=== PATIENT | male | born 1955 | race Caucasian/White ===

== ENCOUNTER 2016-12-06 18:47 | Inpatient (IN) | payer BC ==
--- NOTE | ~2016-12-06 | HP ---
History And Physical [id number] [place]. [address] NAME: SANDY LEARY : 53 STATUS : ADM IN PAT#: [id number] AGE: 61 ADM/REG DATE : 12/06/16 MR#: [id number] REPORT SERV DATE: 12/07/16 DICTATED BY: SONA PRESTON DATE: 12/06/16 REPORT STATUS : Draft TRANSCRIBED BY: MODNorbert DATE: 12/06/16 DATE OF ADMISSION: 12/06/2016 POINT OF ENTRY: [facility] Emergency Department. CHIEF COMPLAINT: Severe headache with vision loss. HISTORY OF PRESENT ILLNESS: Mr. Leary is a 61-year-old gentleman with history of active tobacco abuse, COPD, depression, and gastroesophageal reflux disease, who presents to the emergency department today with an episode of severe headache with associated vision loss. The patient states that he first started to develop very severe focal headaches located in the right temporal region back in June. These are intermittent in nature and usually resolve with ibkr-hth-yhpojgt pain medications. While working out of town about 10 days ago, he developed the acute onset of severe right temporal headache described as pressure sensation with associated complete vision loss of the right eye. His headache and vision loss lasted for approximately two days. The patient stated his headache started to resolve before his vision returned. Since then, he describes a fuzziness to his right monocular vision as well as some residual very mild and faint pressure on the right side of his head. During this headache and vision loss, the patient also describes a sensation of some jaw claudication as well as subjective fevers as well as chills. He denies any recent vision changes, chest pain, shortness of breath, weakness, numbness, or tingling. Initial evaluation in the emergency department is notable for CT scan of the brain was unremarkable. ESR was markedly elevated at 119. Remainder of his labs are otherwise unremarkable. The ER staff here contacted Ophthalmology contact lens blocker through [facility], who recommend initiation of high-dose steroids as well as a temporal artery biopsy, but did not see indication for transfer to [facility] at this time. COMPREHENSIVE REVIEW OF SYSTEMS: Otherwise negative unless listed in history of present illness. PREVIOIUS MEDICAL HISTORY: 1. Depression. 2. Gastroesophageal reflux disease. 3. COPD. 4. Active tobacco abuse. SURGICAL HISTORY: 1. Tonsillectomy. 2. Appendectomy. ALLERGIES: NO KNOWN DRUG ALLERGIES. History And Physical [address] [address] NAME: SANDY LEARY : 53 STATUS : ADM IN PAT#: [id number] AGE: 61 ADM/REG DATE : 12/06/16 MR#: [id number] REPORT SERV DATE: 12/07/16 DICTATED BY: SONA PRESTON DATE: 12/06/16 REPORT STATUS : Draft TRANSCRIBED BY: KOFI DATE: 12/06/16 HOME MEDICATIONS: 1. Albuterol two puff inhalation b.i.d. 2. Aspirin 650 mg b.i.d. p.r.n. 3. Cetirizine 10 mg daily p.r.n. 4. Celexa 20 mg daily. 5. Ranitidine 150 mg daily. 6. Multivitamin one tab daily. SOCIAL HISTORY: Denies any alcohol or illicits. Does smoke a few cigarettes a day, trying to actively quit. 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 Extensive out of town travel. FAMILY MEDICAL HISTORY: Mother with breast cancer. Father with coronary artery disease in his early age of 40s, sister with diabetes and coronary artery disease. LABS AND IMAGIN. White count is 3.4, hemoglobin is 9.5, hematocrit is 29.7, platelet count is 79, INR 1.0. 2. Sodium is 139, potassium 3.7, chloride 105, carbon dioxide 30, BUN 14, creatinine 1.02, glucose is 78, calcium is 8.2, protein is 8.7, albumin is 3.3, bilirubin is 0.4, ALT is 37, AST is 17, alkaline phosphatase is 89. 3. Troponin less than 0.02. 4. ESR is 119. CRP is pending. 5. Chest x-ray per my review shows no acute cardiopulmonary abnormality. 6. CT scan of the brain shows no acute intracranial abnormality. PHYSICAL EXAMINATION: VITAL SIGNS: Temperature is 97.4 degrees Fahrenheit, pulse is 93, respirations 16, saturating 97% on room air, blood pressure is 126/82. GENERAL: The patient is awake, alert, in no acute distress, resting comfortably. He is a well-developed, well-nourished elderly male. HEENT: Atraumatic and normocephalic. Moist mucous membranes. Pupils are equal, round, reactive to light and accommodation. Extraocular eye movements are intact. No scleral icterus. There is no right temporal tenderness on palpation at this time. NECK: No carotid bruits. No jugular venous distention. CARDIAC: Regular rate and rhythm. No murmurs, rubs, or gallops. Normal S1, S2. LUNGS: Clear to auscultation bilaterally. No wheezes, rhonchi, or crackles. ABDOMEN: Soft, nontender, nondistended. Good bowel sounds. No rebound, guarding, or rigidity. EXTREMITIES: Warm and well perfused. No cyanosis, clubbing, or edema. SKIN: Warm and dry. PSYCH: Affect appropriate. NEURO: Alert and oriented x3. Cranial nerves 2 through 12 grossly intact. Speech is normal. Gait not assessed. ASSESSMENT: Mr. Leary is a 61-year-old gentleman, who presented with an isolated episode of a severe right temporal headache with associated vision loss concerning for possible History And Physical [address] [address] NAME: SANDY LEARY : 53 STATUS : ADM IN [facility]#: [id number] AGE: 61 ADM/REG DATE : 12/06/16 MR#: [id number] REPORT SERV DATE: 12/07/16 DICTATED BY: SONA PRESTON DATE: 12/06/16 REPORT STATUS : Draft TRANSCRIBED BY: KOFI DATE: 12/06/16 temporal arteritis. PROBLEM LIST: 1. Possible temporal arteritis. 2. Severe headache. 3. Transient vision loss. 4. Pancytopenia. 5. Active tobacco abuse. PLAN: 1. Possible temporal arteritis. Given the patient's constellation of symptoms as well as elevated ESR level, concern most for temporal arteritis. We will empirically place the patient on high-dose Solu-Medrol, schedule the patient for a temporal artery biopsy. We will also consult Neurology as well as schedule him for an MRI/MRA to rule out any other etiology of the patient's symptoms. 2. Pancytopenia, unclear etiology at this time. The patient denies any active alcohol use. We only have one other lab for comparison from 2014, which at that time, CBC was unremarkable. We will check HIV, hepatitis viral panel, iron studies, folate, B12, and follow up these results. 3. Headache and vision loss. Again, suspect this is all due to temporal arteritis. Followup MRI/MRA as well as Neurology consultation. 4. DVT prophylaxis. Lovenox subcu. CODE STATUS: The patient wished to be full code. SYDNI/KOFI Sona Preston MD / [id number] CC: DO SANDY Shah
--- NOTE | ~2016-12-06 | CN ---
Consultation Report [id number] [place]. [address] NAME: SANDY LEARY : 53 STATUS : ADM IN PAT#: [id number] AGE: 61 ADM/REG DATE : 12/06/16 MR#: [id number] REPORT SERV DATE: 12/07/16 DICTATED BY: KLAUDIA HERRERA DATE: 12/07/16 REPORT STATUS : Draft TRANSCRIBED BY: MODL DATE: 12/07/16 DATE OF CONSULTATION: 12/07/2016 CHIEF COMPLAINT: Headache and visual problems. SUMMARY: A 61-year-old gentleman with history of COPD, depression, reflux, also started to have some headaches primarily on the right. He has also had some visual loss intermittently. He states this is mostly on the right. He was admitted here for further evaluation. Sedimentation rate was noted to be 119. PAST HISTORY: COPD. REVIEW OF SYSTEMS: Essentially unremarkable. PHYSICAL EXAMINATION: GENERAL: Reveals him to be alert, in no acute distress. HEART: Had a regular rhythm. LUNGS: Clear. ABDOMEN: Soft. EXTREMITIES: Grossly within normal limits. IMPRESSION: Possible temporal arteritis. PLAN: Right temporal artery biopsy. This was discussed with him. Risks and complications including bleeding, infection, and nerve injury, and he desires to proceed and this will be scheduled. MALINDA/KOFI Klaudia Herrera M.D. / [id number] CC: DO ALLISON Shah PAUL E
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
--- NOTE | ~2016-12-06 | DS ---
Discharge Summary [facility] [address] [place]. [address] NAME: NEO LEARY : 53 STATUS : DIS IN PAT#: [id number] AGE: 61 ADM/REG DATE : 12/06/16 MR#: [id number] REPORT SERV DATE: 12/13/16 DICTATED BY: ARMANDO TURCIOS DATE: 12/12/16 REPORT STATUS : Draft TRANSCRIBED BY: MODNorbert DATE: 12/12/16 ADMISSION DATE: 12/06/2016 DISCHARGE DATE: 12/11/2016 REASON FOR ADMISSION: This is a 61-year-old male who came in with severe headaches and right visual disturbance. He developed severe focal headaches located in the right temporal region back in June which were intermittent in nature and then while on a work assignment out of town 10 days prior to admission, he developed acute onset of right severe temporal headache associated with complete vision loss of the right eye. Since then he described fuzziness to the right eye to his vision and residual headaches on the right side of his head. DISCHARGE DIAGNOSES: Probable giant cell arteritis. HOSPITAL COURSE: The patient was admitted and Neurology was consulted. They placed him on IV corticosteroids initially on admission and temporal artery biopsy was performed by Dr. David Mosqueda. They would also place him on Topamax and p.r.n. Percocet. The patient's headaches would improve. He still was experiencing some mild blurriness of vision but overall his headache symptoms are much more manageable. The temporal artery biopsy would come back negative for active arthritis. Patient's ESR was found to be 115. The patient had CT of the brain initially done on admission which showed unremarkable noncontrast head CT. MRI of the brain will be performed on which would show no evidence of any intrinsic defect of the ophthalmic system. No extrinsic compression. Ventricles are midline and normal. Hemisphere symmetric. Diffusion images negative for any acute injury or vascular injury. No evidence of chronic vascular injury either. MRA of the head which showed mild atherosclerotic changes of the basilar artery identified. The remainder of the intracranial exam was normal. MRA of neck would show no significant stenosis of the brachiocephalic portions of the carotid, vertebral or subclavian arteries identified. Due to patient's improvement in symptoms, he is stable for discharge, be discharged home on prednisone and Topamax with followup with Neurology in two weeks. DISCHARGE CONDITION: Stable. DISCHARGE MEDICATIONS: 1. Aspirin 81 mg p.o. daily. 2. Celexa 20 mg p.o. daily. 3. Zantac 150 mg p.o. p.r.n. 4. Albuterol p.r.n. 5. Multivitamin one tablet p.o. daily. 6. Zyrtec 10 mg p.r.n. daily. 7. Hydrocodone 7.5/325 one tab p.o. q.4 hours p.r.n. 8. Topamax 25 mg p.o. b.i.d. 9. Prednisone 80 mg p.o. daily. DISCHARGE PLAN: The patient is discharged home. Follow up with Neurology in two weeks and primary care who is Neo Bradley in one to two weeks. Discharge Summary [address] [address] NAME: NEO LEARY : 53 STATUS : DIS IN PAT#: [id number] AGE: 61 ADM/REG DATE : 12/06/16 MR#: [id number] REPORT SERV DATE: 12/13/16 DICTATED BY: ARMANDO TURCIOS DATE: 12/12/16 REPORT STATUS : Draft TRANSCRIBED BY: KOFI DATE: 12/12/16 TDR/KOFI Armando Turcios APN / [id number] CC: Srinivas Montano, [facility] David Mosqueda M.D.
--- NOTE | ~2016-12-06 | OP ---
Record Of Operation [facility] [address] [place]. [address] NAME: NEO LEARY : 53 STATUS : ADM IN [facility]#: [id number] AGE: 61 ADM/REG DATE : 12/06/16 MR#: [id number] REPORT SERV DATE: 12/07/16 DICTATED BY: KLAUDIA HERRERA DATE: 12/07/16 REPORT STATUS : Draft TRANSCRIBED BY: KOFI DATE: 12/07/16 DATE OF PROCEDURE: 12/07/2016 PREOPERATIVE DIAGNOSIS: Headache and right eye vision problems. POSTOPERATIVE DIAGNOSIS: Headache and right eye vision problems, possible temporal arteritis. PROCEDURES: Right temporal artery biopsy. ANESTHESIA: General endotracheal anesthesia with local anesthetic administered by the surgeon. IV FLUIDS: 800 mL. ESTIMATED BLOOD LOSS: 20 mL. SPECIMEN: Right temporal artery biopsy. DRAINS: None. COMPLICATIONS: None. CULTURES: None. INDICATIONS: Mr. Leayr is a 61-year-old man who presented to the hospital secondary to right-sided headache and visual disturbance. His sedimentation rate is 119 secondary to concern for temporal arteritis. General Surgery was consulted for biopsy, this was offered. Preoperatively, benefits, alternatives, and risks including bleeding, infection, possible nerve damage, and risk of general endotracheal anesthesia including, but not limited to, heart attack, stroke, and were all described in detail to the patient preoperatively. After having all questions answered, the patient voiced understanding of these risks and desired to proceed with surgery. PROCEDURE IN DETAIL: The patient was identified preoperatively as Neo Leary. It was determined that he had appropriately signed documents including history and physical and operative permit were secured on the chart. He was taken to the operating room, placed supine on the operating room table where general anesthesia was induced by the Anesthesia Service, who monitored the patient throughout the procedure. The right side of the head was clipped of excess hair and prepped in the usual sterile fashion and draped. An appropriate time-out procedure was completed wherein the patient, procedure, site, positioning, allergies, equipment, and administration of antibiotics were verified prior to beginning. The temporal artery was palpated just medial to the pinna and a small incision was made with a knife. This carried down through the subcutaneous tissues with electrocautery until the artery was encountered, proximal and distal margins of resection were identified, and the artery was freed of surrounding tissues. These margins were clamped, cut, and tied with Record Of Operation [address] [address] NAME: NEO LEARY : 53 STATUS : ADM IN [facility]#: [id number] AGE: 61 ADM/REG DATE : 12/06/16 MR#: [id number] REPORT SERV DATE: 12/07/16 DICTATED BY: KLAUDIA HERRERA DATE: 12/07/16 REPORT STATUS : Draft TRANSCRIBED BY: KOFI DATE: 12/07/16 marina. The specimen was passed off the table to Pathology for examination. The wound was irrigated and closed in layers and Dermabond was applied. This ended the procedure. Sedation was stopped and the patient was allowed to awaken in the operating room and then taken to the postanesthesia care unit in good condition after having tolerated the procedure well. Counts of needles, sponges, and instruments were correct at the end the case. Dr. Herrera was present and scrubbed for the entirety of the surgical procedure. No intraoperative complications were noted. DICTATED BY: Farida Archer MD [facility]/KOFI Klaudia Herrera M.D. / [id number] CC: DO ALLISON Shah PAUL E
[2016-12-06 18:34] LABS: BASOPHILS 0.3 %; BASOPHILS ABSOLUTE 0.01 10/3/uL (0.0-0.16); EOSINOPHILS 0.3 %; EOSINOPHILS ABSOLUTE 0.01 10/3/uL (0.0-0.53); IMMATURE GRANULOCYTES 0.3 %; IMMATURE GRANULOCYTES ABSOLUTE 0.01 10/3/uL (0.0-0.11); LYMPHOCYTES 47.8 %; LYMPHOCYTES ABSOLUTE 1.64 10/3/uL (0.67-4.30); MEAN CORPUSCULAR HEMOGLOB 29.3 pg (26.0-34.0); MEAN CORPUSCULAR VOLUME 91.7 fL (80-100); MEAN PLATELET VOLUME 8.9 fL (9.2-13.0); MONOCYTES 9.3 %; MONOCYTES ABSOLUTE 0.32 10/3/uL (0.21-1.20); NEUTROPHILS ABSOLUTE 1.44 10/3/uL (2.02-8.40); NUCLEATED RED BLOOD CELLS 0.7 /100WBC (0-0); PLATELET COUNT 79 10/3/uL (150-400); RBC DISTRIBUTION WIDTH 16.5 % (12.0-16.0); WHITE BLOOD CELLS 3.4 10/3/uL (4.5-10.5)
[2016-12-06 18:38] LABS: HEMATOCRIT 29.7 % (40.0-51.0); HEMOGLOBIN 9.5 g/dL (13.6-17.8); MANUAL DIFF NO %; RED CELL COUNT 3.24 10/6/uL (4.7-6.1)
[2016-12-06 18:43] LABS: PARTIAL THROMBO TIME 25.2 SEC (22.5-37.2); PROTIME (NOT ORD) 13.3 SEC (12.0-14.5)
[2016-12-06 18:51] LABS: A/G RATIO 0.6 (0.7-1.9); ALBUMIN 3.3 G/DL (3.5-5.0); ALKALINE PHOSPHATASE 89 U/L (45-117); BUN (BLOOD UREA NITROGEN) 14 MG/DL (6-23); CALCIUM, SERUM 8.2 MG/DL (8.5-10.4); CHLORIDE, SERUM 105 MMOL/L (96-112); CO2 (CARBON DIOXIDE) 30 MMOL/L (24-34); CREATININE 1.02 MG/DL (0.70-1.30); GFR AFRICAN AMERICAN 91 ML/MIN (>=60); GFR NON AFRICAN AMERICAN 78 ML/MIN (>=60); GLOBULIN 5.4 G/DL (2.5-4.1); GLUCOSE, SERUM 78 MG/DL (60-99); POTASSIUM, SERUM 3.7 MMOL/L (3.5-5.3); SGOT(AST) 17 U/L (5-40); SGPT(ALT) 37 U/L (5-65); SODIUM, SERUM 139 MMOL/L (135-148); TOTAL BILIRUBIN 0.4 MG/DL (0-1.2); TOTAL PROTEIN 8.7 G/DL (6.0-8.5); TROPONIN I <0.02 NG/ML (<0.05)
[2016-12-06 18:53] LABS: PLATELET ESTIMATE DEC (ADEQUATE)
[2016-12-06 18:54] LABS: ANISOCYTOSIS 1+ (5-10/OIF) (0-5/OIF); MACROCYTES 1+ (5-10/OIF) (0-5/OIF); MICROCYTES 1+ (5-10/OIF) (0-5/OIF); TEARDROP SHAPED RBCS OCC (0-2/OIF)
[2016-12-06 20:19] LABS: ACETAMINOPHEN LEVEL (TYLENOL) < 2.0 MCG/ML (10.0-20.0); ALCOHOL < 3 MG/DL (0); SALICYLATE 1.8 MG/DL (-)
[2016-12-06 20:45] LABS: SED RATE 119 MM/HR (0-15)
[2016-12-06] MEDS ORDERED: HALF81 PO (21:53)
[2016-12-06] MEDS ORDERED: CELEXA20 PO (21:53)
[2016-12-06] MEDS ORDERED: MULTIVITAMIN GUMMY PO (21:54)
[2016-12-06] MEDS ORDERED: VENTOLIN HFA INH (21:54)
[2016-12-06] MEDS ORDERED: ZANTAC150 MG PO (21:54)
[2016-12-06] MEDS ORDERED: ZYRTEC ALLGY10 MG PO (21:55)
[2016-12-06 22:09] LABS: C-REACTIVE PROTEIN < 2.9 MG/L (<8.0)
[2016-12-07 06:26] LABS: BASOPHILS 0 %; EOSINOPHILS 0 %; HEMATOCRIT 28.6 % (40.0-51.0); HEMOGLOBIN 9.3 g/dL (13.6-17.8); IMMATURE GRANULOCYTES 0.5 %; IMMATURE GRANULOCYTES ABSOLUTE 0.01 10/3/uL (0.0-0.11); LYMPHOCYTES 37.2 %; MEAN CORPUS HGB CONC 32.5 g/dL (32.0-36.0); MEAN CORPUSCULAR HEMOGLOB 29.6 pg (26.0-34.0); MEAN CORPUSCULAR VOLUME 91.1 fL (80-100); MEAN PLATELET VOLUME 9.4 fL (9.2-13.0); MONOCYTES 1.9 %; MONOCYTES ABSOLUTE 0.04 10/3/uL (0.21-1.20); NEUTROPHILS 60.4 %; PLATELET COUNT 88 10/3/uL (150-400); RBC DISTRIBUTION WIDTH 16.4 % (12.0-16.0); RED CELL COUNT 3.14 10/6/uL (4.7-6.1); RETICULOCYTE COUNT 1.9 % (0.5-2.5)
[2016-12-07 06:29] LABS: WHITE BLOOD CELLS 2.2 10/3/uL (4.5-10.5)
[2016-12-07 06:30] LABS: INTERNATIONAL NORMAL RATI 1.1 UNITS (-); MANUAL DIFF NO %; PARTIAL THROMBO TIME 25.8 SEC (22.5-37.2); PROTIME (NOT ORD) 13.8 SEC (12.0-14.5)
[2016-12-07 07:04] LABS: BUN (BLOOD UREA NITROGEN) 14 MG/DL (6-23); CALCIUM, SERUM 8.3 MG/DL (8.5-10.4); CHLORIDE, SERUM 106 MMOL/L (96-112); CO2 (CARBON DIOXIDE) 28 MMOL/L (24-34); FERRITIN 142 NG/ML (26-388); FREE T4 1.38 NG/DL (0.76-1.46); GFR AFRICAN AMERICAN 75 ML/MIN (>=60); GFR NON AFRICAN AMERICAN 64 ML/MIN (>=60); IRON BINDING CAPACITY 253 MCG/DL (250-450); IRON, SERUM 57 MCG/DL (35-150); POTASSIUM, SERUM 4.2 MMOL/L (3.5-5.3); SODIUM, SERUM 141 MMOL/L (135-148)
[2016-12-07 07:06] LABS: FOLATE 14.5 NG/ML (>5.2); GLUCOSE, SERUM 147 MG/DL (60-99); ULTRASENSITIVE TSH 0.766 MCIU/ML (0.358-3.740)
[2016-12-07 08:11] LABS: HEPATITIS B SURFACE ANTIGEN NON-REACTIVE (NON-REACT)
[2016-12-07 08:32] LABS: HEPATITIS C ANTIBODY NON-REACTIVE (NON-REACT)
[2016-12-07 08:33] LABS: HEPATITIS B CORE AB IGM NON-REACTIVE (NON-REAC)
[2016-12-07 08:34] LABS: HIV COMBO NON-REACTIVE (NON REAC)
[2016-12-07 08:35] LABS: HEP A ANTIBODY IGM NON-REACTIVE (NON-REACT)
[2016-12-07 17:18] LABS: CPK 38 U/L (0-200); RHEUMATOID FACTOR QUANT < 10 IU/ML (0-15)
[2016-12-08 06:53] LABS: BASOPHILS 0 %; EOSINOPHILS 0 %; HEMOGLOBIN 8.4 g/dL (13.6-17.8); IMMATURE GRANULOCYTES 0.5 %; IMMATURE GRANULOCYTES ABSOLUTE 0.02 10/3/uL (0.0-0.11); LYMPHOCYTES 10.5 %; LYMPHOCYTES ABSOLUTE 0.41 10/3/uL (0.67-4.30); MEAN CORPUS HGB CONC 32.3 g/dL (32.0-36.0); MEAN CORPUSCULAR HEMOGLOB 29.6 pg (26.0-34.0); MEAN CORPUSCULAR VOLUME 91.5 fL (80-100); MEAN PLATELET VOLUME 9.7 fL (9.2-13.0); MONOCYTES 9.4 %; MONOCYTES ABSOLUTE 0.37 10/3/uL (0.21-1.20); NEUTROPHILS 79.6 %; NEUTROPHILS ABSOLUTE 3.12 10/3/uL (2.02-8.40); PLATELET COUNT 79 10/3/uL (150-400); RBC DISTRIBUTION WIDTH 16.7 % (12.0-16.0); RED CELL COUNT 2.84 10/6/uL (4.7-6.1)
[2016-12-08 06:59] LABS: BUN (BLOOD UREA NITROGEN) 18 MG/DL (6-23); CALCIUM, SERUM 8.1 MG/DL (8.5-10.4); CHLORIDE, SERUM 108 MMOL/L (96-112); CO2 (CARBON DIOXIDE) 27 MMOL/L (24-34); CREATININE 1.19 MG/DL (0.70-1.30); GFR AFRICAN AMERICAN 75 ML/MIN (>=60); GFR NON AFRICAN AMERICAN 65 ML/MIN (>=60); GLUCOSE, SERUM 163 MG/DL (60-99); PHOSPHORUS, SERUM 2.7 MG/DL (2.5-4.5); POTASSIUM, SERUM 3.9 MMOL/L (3.5-5.3); SODIUM, SERUM 142 MMOL/L (135-148)
[2016-12-08 07:04] LABS: MANUAL DIFF NO %; WHITE BLOOD CELLS 3.9 10/3/uL (4.5-10.5)
[2016-12-08 07:14] LABS: PLATELET ESTIMATE DEC (ADEQUATE)
[2016-12-08 07:15] LABS: RBC MORPHOLOGY NORM (NORMAL)
[2016-12-08 08:16] LABS: SED RATE 122 MM/HR (0-15)
[2016-12-09 06:50] LABS: CALCIUM, SERUM 8.9 MG/DL (8.5-10.4); CHLORIDE, SERUM 107 MMOL/L (96-112); CO2 (CARBON DIOXIDE) 29 MMOL/L (24-34); CREATININE 1.13 MG/DL (0.70-1.30); GFR AFRICAN AMERICAN 80 ML/MIN (>=60); GFR NON AFRICAN AMERICAN 69 ML/MIN (>=60); PHOSPHORUS, SERUM 3.1 MG/DL (2.5-4.5); POTASSIUM, SERUM 4.2 MMOL/L (3.5-5.3); SODIUM, SERUM 143 MMOL/L (135-148)
[2016-12-09 06:51] LABS: BUN (BLOOD UREA NITROGEN) 22 MG/DL (6-23); GLUCOSE, SERUM 109 MG/DL (60-99)
[2016-12-09 06:53] LABS: BASOPHILS 0 %; EOSINOPHILS 0 %; HEMATOCRIT 27.1 % (40.0-51.0); HEMOGLOBIN 8.8 g/dL (13.6-17.8); IMMATURE GRANULOCYTES 0.4 %; IMMATURE GRANULOCYTES ABSOLUTE 0.02 10/3/uL (0.0-0.11); LYMPHOCYTES 13.4 %; LYMPHOCYTES ABSOLUTE 0.66 10/3/uL (0.67-4.30); MEAN CORPUS HGB CONC 32.5 g/dL (32.0-36.0); MEAN CORPUSCULAR HEMOGLOB 29.8 pg (26.0-34.0); MEAN CORPUSCULAR VOLUME 91.9 fL (80-100); MEAN PLATELET VOLUME 10.1 fL (9.2-13.0); MONOCYTES 9.2 %; MONOCYTES ABSOLUTE 0.45 10/3/uL (0.21-1.20); NEUTROPHILS ABSOLUTE 3.78 10/3/uL (2.02-8.40); PLATELET COUNT 74 10/3/uL (150-400); RBC DISTRIBUTION WIDTH 17.3 % (12.0-16.0); RED CELL COUNT 2.95 10/6/uL (4.7-6.1); WHITE BLOOD CELLS 4.9 10/3/uL (4.5-10.5)
[2016-12-09 06:54] LABS: MANUAL DIFF NO %
[2016-12-09 08:15] LABS: ANISOCYTOSIS 1+ (5-10/OIF) (0-5/OIF); MACROCYTES 1+ (5-10/OIF) (0-5/OIF); PLATELET ESTIMATE DEC (ADEQUATE)
[2016-12-09 09:58] LABS: SED RATE 115 MM/HR (0-15)
[2016-12-10 04:29] LABS: HEMATOCRIT 28.5 % (40.0-51.0); HEMOGLOBIN 9.4 g/dL (13.6-17.8); MANUAL DIFF YES %; MEAN CORPUSCULAR HEMOGLOB 30.6 pg (26.0-34.0); MEAN CORPUSCULAR VOLUME 92.8 fL (80-100); MEAN PLATELET VOLUME 10.3 fL (9.2-13.0); PLATELET COUNT 74 10/3/uL (150-400); RBC DISTRIBUTION WIDTH 17.3 % (12.0-16.0); RED CELL COUNT 3.07 10/6/uL (4.7-6.1); WHITE BLOOD CELLS 4.3 10/3/uL (4.5-10.5)
[2016-12-10 04:55] LABS: BUN (BLOOD UREA NITROGEN) 24 MG/DL (6-23); CALCIUM, SERUM 8.2 MG/DL (8.5-10.4); CHLORIDE, SERUM 110 MMOL/L (96-112); CO2 (CARBON DIOXIDE) 26 MMOL/L (24-34); CREATININE 1.13 MG/DL (0.70-1.30); GFR AFRICAN AMERICAN 80 ML/MIN (>=60); GFR NON AFRICAN AMERICAN 69 ML/MIN (>=60); GLUCOSE, SERUM 126 MG/DL (60-99); PHOSPHORUS, SERUM 2.7 MG/DL (2.5-4.5); POTASSIUM, SERUM 3.9 MMOL/L (3.5-5.3); SODIUM, SERUM 145 MMOL/L (135-148)
[2016-12-10 05:01] LABS: ANISOCYTOSIS 1+ (5-10/OIF) (0-5/OIF); BAND NEUTROPHILS 2 %; LYMPHOCYTES 21 %; MONOCYTES 1 %; MONOCYTES ABSOLUTE (CALC) 0.04 10/3/uL (0.21-1.20); NEUTROPHILS ABSOLUTE (CALC) 3.35 10/3/uL (2.02-8.40); PLATELET ESTIMATE DEC (ADEQUATE); SEGMENTED NEUTROPHIL (0) 76 %; TOTAL NUCLEATED CELLS 100
[2016-12-10 05:02] LABS: RBC MORPHOLOGY ABN (NORMAL)
[2016-12-11 05:40] LABS: BASOPHILS 0 %; EOSINOPHILS 0 %; HEMATOCRIT 29.9 % (40.0-51.0); HEMOGLOBIN 9.6 g/dL (13.6-17.8); IMMATURE GRANULOCYTES 0.5 %; IMMATURE GRANULOCYTES ABSOLUTE 0.02 10/3/uL (0.0-0.11); LYMPHOCYTES 35.1 %; LYMPHOCYTES ABSOLUTE 1.49 10/3/uL (0.67-4.30); MEAN CORPUS HGB CONC 32.1 g/dL (32.0-36.0); MEAN CORPUSCULAR HEMOGLOB 29.9 pg (26.0-34.0); MEAN CORPUSCULAR VOLUME 93.1 fL (80-100); MEAN PLATELET VOLUME 10.1 fL (9.2-13.0); MONOCYTES 10.1 %; MONOCYTES ABSOLUTE 0.43 10/3/uL (0.21-1.20); NEUTROPHILS 54.3 %; PLATELET COUNT 62 10/3/uL (150-400); RBC DISTRIBUTION WIDTH 17.3 % (12.0-16.0); RED CELL COUNT 3.21 10/6/uL (4.7-6.1); WHITE BLOOD CELLS 4.2 10/3/uL (4.5-10.5)
[2016-12-11 05:41] LABS: MANUAL DIFF NO %
[2016-12-11 06:31] LABS: ANISOCYTOSIS 1+ (5-10/OIF) (0-5/OIF); HYPOCHROMIA 1+ (3-10/OIF) (0-2/OIF); PLATELET ESTIMATE DEC (ADEQUATE)
[2016-12-11] MEDS ORDERED: NORCO1 TA2 PO (12:09)
[2016-12-11] MEDS ORDERED: TOPAMAX25 PO (12:11)
[2016-12-11] MEDS ORDERED: P20 PO (12:12)
== END 2016-12-11 14:31 | disposition home or self-care (01) | DRG 516 ==
LOC: ER 18:47 → 1SO 22:48
PROVIDERS: Internal Medicine; Nurse Practitioner; Physician Assistant; Specialist
PROC: 03BS0ZX Excision of Right Temporal Artery, Open Approach, Diagnostic (ICD-10-PCS; principal; 2016-12-07 12:00)
DX: M31.6 Other giant cell arteritis (principal); D61.818 Other pancytopenia; H53.121 Transient visual loss, right eye; F32.9 Major depressive disorder, single episode, unspecified; J44.9 Chronic obstructive pulmonary disease, unspecified; K21.9 Gastro-esophageal reflux disease without esophagitis; D64.9 Anemia, unspecified; R51 Headache; F17.210 Nicotine dependence, cigarettes, uncomplicated; Z79.82 Long term (current) use of aspirin; Z79.899 Other long term (current) drug therapy; Z87.01 Personal history of pneumonia (recurrent)
CPT/HCPCS: 70450; 70544; 70548; 70553; 71020; 80048; 80053; 80074; 80307; 82272; 82550; 82607; 82728; 82746; 82962; 83540; 83550; 83735; 84100; 84439; 84443; 84484; 85025; 85045; 85610; 85652; 85730; 86039; 86140; 86225; 86431; 86592; 87205; 87389; 88305; 88313; 93005; 97161-GP; 99285; A9270-GY; A9577; J0690; J1170; J1885; J2250; J2405; J2930; J3010